=== PATIENT | female | born 1975 | race African-American/Black ===

== ENCOUNTER 2021-01-19 13:39 | Emergency (ER) | payer OTHER ==
[~2021-01-19] VITALS: Ht 175.3 cm; Wt 90.7 kg
[~2021-01-19 13:39] MED LIST: DICYCLOMINE HCL10 MG PO; IBUPROFEN 800800 MG PO; NORCO 5-325 TA1 EACH PO; PRINIVIL20 MG PO; TRAMADOL 50 MG50 MG PO; URECHOLINE PO
[2021-01-19 13:58] VITALS: BP 160/99
[2021-01-19] MEDS ORDERED: MEDROL DOSPAK21 TA1 PO ×2 (15:50→17:02)
[2021-01-19] MEDS ORDERED: NAPROSYN500 M1 PO (15:50)
[2021-01-19] MEDS ORDERED: FLEXERIL PO ×2 (15:50→17:02)
[2021-01-19] MEDS ORDERED: ANAPROX DS550 MG PO (17:02)
== END 2021-01-19 17:22 | disposition home or self-care (01) ==
LOC: ER 13:39
DX: S16.1XXA Strain of muscle, fascia and tendon at neck level, initial encounter (principal); S29.012A Strain of muscle and tendon of back wall of thorax, initial encounter; S39.012A Strain of muscle, fascia and tendon of lower back, initial encounter; Z79.891 Long term (current) use of opiate analgesic; Z79.1 Long term (current) use of non-steroidal anti-inflammatories (NSAID); Z79.899 Other long term (current) drug therapy; V87.7XXA Person injured in collision between other specified motor vehicles (traffic), initial encounter; Y93.89 Activity, other specified; Y92.89 Other specified places as the place of occurrence of the external cause; Y99.8 Other external cause status